=== PATIENT | female | born 1995 | race Hispanic/Latino ===

== ENCOUNTER 2021-11-23 12:07 | Emergency (ER) | payer OTHER, SELFPAY ==
[2021-11-23] MEDS ORDERED: Ketorolac Tromethamine 30 MG/ML VIAL ONE (13:05)
== END 2021-11-23 14:37 | disposition home or self-care (01) ==
LOC: BURERS 12:07
DX: R51.9 Headache, unspecified (principal); F17.210 Nicotine dependence, cigarettes, uncomplicated
CPT/HCPCS: 96374; J1885

== ENCOUNTER 2023-03-19 00:04 | Emergency (ER) | payer OTHER ==
[2023-03-19] MEDS ORDERED: Lidocaine 1%/Epinephrine 1:100K 10 ML VIAL ONE (00:38)
[2023-03-19] MEDS ORDERED: Bacitracin 1 PK ONE (00:59)
[2023-03-19] MEDS ORDERED: Boostrix 0.5 ML (Tdap) VIAL (>/=7 yrs of age) ONE (01:05)
== END 2023-03-19 01:20 | disposition home or self-care (01) ==
LOC: BURERS 00:04
DX: S91.021A Laceration with foreign body, right ankle, initial encounter (principal); F17.210 Nicotine dependence, cigarettes, uncomplicated; W25.XXXA Contact with sharp glass, initial encounter; Z23 Encounter for immunization
CPT/HCPCS: 12002; 90471; 90715

== ENCOUNTER 2023-04-08 16:04 | Emergency (ER) | payer OTHER | END 2023-04-08 16:43 | disposition home or self-care (01) | LOC: BURERS 16:04 | DX: S91.011D Laceration without foreign body, right ankle, subsequent encounter (principal); F17.210 Nicotine dependence, cigarettes, uncomplicated; X58.XXXD Exposure to other specified factors, subsequent encounter | CPT/HCPCS: 99282 ==

== ENCOUNTER 2025-06-23 22:59 | Emergency (ER) | payer SELFPAY | END 2025-06-24 00:01 | disposition home or self-care (01) | LOC: BURERS 22:59 | DX: S06.0XAA Concussion with loss of consciousness status unknown, initial encounter (principal); F17.210 Nicotine dependence, cigarettes, uncomplicated; Y04.2XXA Assault by strike against or bumped into by another person, initial encounter | CPT/HCPCS: 70450 ==

== ENCOUNTER 2025-11-16 07:06 | Emergency (ER) | payer SELFPAY ==
[2025-11-16 07:44] LABS: #Basophils 0.1 thou/uL (0.0-0.2); #Eosinophils 0.0 thou/uL (0.0-0.7); #Lymphocytes 2.8 thou/uL (1.20-3.40); #Monocytes 0.9 thou/uL (0.11-0.59); #Neutrophils 11.3 thou/uL (1.40-6.50); %Basophils 0.6 % (0.0-1.0); %Eosinophils 0.2 % (0.0-10.0); %Lymphocytes 18.4 % (21.0-51.0); %Monocytes 5.8 % (0.0-10.0); %Neutrophils 75.0 % (42.0-75.0); Hematocrit 45.5 % (36.0-47.0); Hemoglobin 15.0 g/dL (12.0-16.0); Mean Corpuscular Hemoglobin 29.0 pg (27.0-31.0); Mean Corpuscular Volume 87.9 fl (78.0-98.0); Platelet Count 426 10x3/uL (130-400); Red Blood Cell (RBC) Count 5.18 mill/uL (4.20-5.40); White Blood Cell (WBC) Count 15.1 10x3/uL (4.8-10.8)
[2025-11-16 08:02] LABS: ALT (SGPT) 67 U/L (Less than 34); AST (SGOT) 54 U/L (11-34); Albumin 4.6 g/dL (3.1-4.5); Alkaline Phosphatase 124 U/L (40-110); Anion Gap 19 mmol/L (10-20); BUN (Urea Nitrogen) 9 mg/dL (7.0-18.7); Bilirubin, Total 0.8 mg/dL (0.3-1.2); Calc. Creatinine Clearance 0 mL/min (70-130); Calcium 9.6 mg/dL (7.8-10.44); Carbon Dioxide 21 mmol/L (22-29); Chloride 102 mmol/L (98-107); Globulin 3.7 g/dL (2.4-3.5); Glucose 149 mg/dL (70-105); Potassium 3.3 mmol/L (3.5-5.1); Sodium 139 mmol/L (136-145)
[2025-11-16 08:07] LABS: Troponin I 0.012 ng/mL (< 0.028)
== END 2025-11-16 08:46 | disposition home or self-care (01) ==
LOC: BURERS 07:06
DX: F41.0 Panic disorder [episodic paroxysmal anxiety] (principal); E87.6 Hypokalemia; F15.10 Other stimulant abuse, uncomplicated; D72.829 Elevated white blood cell count, unspecified; F10.10 Alcohol abuse, uncomplicated; F17.210 Nicotine dependence, cigarettes, uncomplicated; Y90.9 Presence of alcohol in blood, level not specified
CPT/HCPCS: 80053; 84484; 85025; 96374; J2060